=== PATIENT | female | born 1990 | race Caucasian/White ===

== ENCOUNTER 2020-04-12 21:36 | Emergency (ER) | payer OTHER ==
[~2020-04-12 21:36] MED LIST: LOVENOX80 MG/0.8 SC
[2020-04-12] MEDS ORDERED: LODINE CAP 300300 MG PO (22:19)
[2020-04-12] MEDS ORDERED: PENVEE K 500 M500 MG PO (22:19)
== END 2020-04-12 22:35 | disposition home or self-care (01) ==
LOC: ER1 21:36
DX: K04.7 Periapical abscess without sinus (principal); K02.9 Dental caries, unspecified; F17.210 Nicotine dependence, cigarettes, uncomplicated
CPT/HCPCS: 96372; 99282; J1885

== ENCOUNTER 2020-04-14 07:59 | Emergency (ER) | payer OTHER ==
[~2020-04-14 07:59] MED LIST changes: +LODINE CAP 300300 MG PO; +PENVEE K 500 M500 MG PO
[2020-04-14 10:26] LABS: HEMOGLOBIN 13.3 gm/dl (12.3-15.3); RED BLOOD COUNT 4.34 M/UL (4.00-5.10); WHITE BLOOD COUNT 12.6 K/UL (4.5-11.0)
[2020-04-14 11:03] LABS: BUN/CREATININE RATIO 10 (0-10)
[2020-04-14] MEDS ORDERED: CLEOCIN HCL300 MG PO (14:50)
== END 2020-04-14 15:03 | disposition home or self-care (01) ==
LOC: ER1 07:59
PROVIDERS: Physician Assistant
DX: K04.7 Periapical abscess without sinus (principal); L03.213 Periorbital cellulitis; F17.210 Nicotine dependence, cigarettes, uncomplicated
CPT/HCPCS: 70487; 80053; 84703; 85025; 96365; 96375; 99284; J0295; J1885; Q9963